=== PATIENT | female | born 1950 | race Caucasian/White ===

== ENCOUNTER 2020-09-15 18:57 | Observation (INO) | payer MEDICARE ==
[2020-09-15] MEDS ORDERED: Morphine 4 MG/ML VIAL ONE (20:21)
[2020-09-15] MEDS ORDERED: Dextrose 5% in Water 1,000 ML IV PRN (21:12)
[2020-09-15] MEDS ORDERED: Morphine 2 MG/ML VIAL SLOW IVP PRN (21:12)
[2020-09-15] MEDS ORDERED: Morphine 4 MG/ML VIAL SLOW IVP PRN (21:12)
[2020-09-15] MEDS ORDERED: Dextrose 50% Abboject 50 ML SYRINGE SLOW IVP PRN (21:12)
[2020-09-15] MEDS ORDERED: hydrALAZINE 20 MG/ML VIAL SLOW IVP PRN (21:12)
[2020-09-15] MEDS ORDERED: Promethazine HCl 25 MG/ML VIAL IM PRN (21:12)
[2020-09-15] MEDS: Famotidine/PF 20 mg/2ml Vial SLOW IVP SCH (21:24)
[2020-09-15] MEDS: D5 1/2 NS w/20 mEq KCL 1,000 ML IV SCH (21:24)
[2020-09-15] MEDS: Ondansetron PF 4 MG/2 ML Vial IVP PRN (21:24)
[2020-09-15] MEDS: Famotidine 20 MG TAB PO SCH (21:26)
[2020-09-15 22:11] VITALS: BMI 22.4
[2020-09-15] MEDS: Ketorolac Tromethamine 30 MG/ML VIAL IVP SCH (23:43)
[2020-09-15] MEDS: Piperacillin/Tazobactam 3.375 GM in Sodium Chloride 0.9% 100 ML IVPB SCH (23:44)
[2020-09-16] MEDS: Piperacillin/Tazobactam 3.375 GM in Sodium Chloride 0.9% 100 ML IVPB SCH ×4 (05:06→23:55)
[2020-09-16] MEDS: Ketorolac Tromethamine 30 MG/ML VIAL IVP SCH ×4 (05:06→23:56)
[2020-09-16] MEDS: D5 1/2 NS w/20 mEq KCL 1,000 ML IV SCH ×2 (05:10→17:57)
[2020-09-16] MEDS: Ondansetron PF 4 MG/2 ML Vial IVP PRN (06:29)
[2020-09-16] MEDS ORDERED: Fentanyl 100 MCG/2 ML VIAL ONE (07:17)
[2020-09-16] MEDS ORDERED: Lidocaine 1% w/Epinephrine 1:100K 20 ML VIAL ONE (07:25)
[2020-09-16] MEDS ORDERED: Bupivacaine 0.25% HCL 30 ML VIAL ONE (07:25)
[2020-09-16] MEDS ORDERED: Ondansetron HCl/PF 4 MG/2 ML Vial IVP PRN (07:31)
[2020-09-16] MEDS ORDERED: HYDROmorphone 2 MG/ML VIAL SLOW IVP PRN (07:31)
[2020-09-16] MEDS ORDERED: Promethazine HCl 25 MG/ML VIAL SLOW IVP PRN (07:31)
[2020-09-16] MEDS ORDERED: Morphine Sulfate 2 MG/ML SYRINGE SLOW IVP PRN (07:31)
[2020-09-16] MEDS ORDERED: Promethazine HCl 25 MG/ML VIAL IM PRN (07:31)
[2020-09-16] MEDS: Famotidine 20 MG TAB PO SCH ×2 (09:00→20:23)
[2020-09-16] MEDS: Famotidine/PF 20 mg/2ml Vial SLOW IVP SCH ×2 (09:00→20:24)
[2020-09-16] MEDS ORDERED: Lidocaine 1% PF 5 ML VIAL ONE (10:02)
[2020-09-16] MEDS ORDERED: Glycopyrrolate 0.2 MG/ML 5 ML SYRINGE ONE (10:02)
[2020-09-16] MEDS ORDERED: PROPOFOL 200 MG/20 ML VIAL ONE (10:02)
[2020-09-16] MEDS ORDERED: Succinylcholine 200 MG/10 ml SYRINGE FS ONE (10:02)
[2020-09-16] MEDS ORDERED: Ondansetron PF 4 MG/2 ML Vial ONE (10:02)
[2020-09-16] MEDS ORDERED: Rocuronium Bromide 10 MG/ML (10ML VIAL) ONE (10:02)
[2020-09-16] MEDS ORDERED: Dexamethasone 20 MG/5 ML VIAL ONE (10:02)
[2020-09-16] MEDS ORDERED: PHENYLEPHRINE-NS 100 MCG/ML 10 ML SYRINGE ONE (10:02)
[2020-09-16] MEDS ORDERED: HYDROcodone/Acetaminophen 7.5/325 mg Tablet PO PRN (20:29)
[2020-09-17] MEDS: Piperacillin/Tazobactam 3.375 GM in Sodium Chloride 0.9% 100 ML IVPB SCH ×2 (05:39→11:55)
[2020-09-17] MEDS: Ketorolac Tromethamine 30 MG/ML VIAL IVP SCH ×2 (05:40→11:55)
[2020-09-17] MEDS: D5 1/2 NS w/20 mEq KCL 1,000 ML IV SCH ×2 (05:41→11:55)
[2020-09-17 06:11] VITALS: TEMP 97.7
[2020-09-17 06:16] LABS: #Lymphocytes 0.6 thou/uL (1.20-3.40); #Monocytes 0.8 thou/uL (0.11-0.59); #Neutrophils 7.3 thou/uL (1.40-6.50); %Basophils 0.1 % (0.0-1.0); %Eosinophils 0.1 % (0.0-10.0); %Lymphocytes 6.9 % (21.0-51.0); %Monocytes 9.2 % (0.0-10.0); %Neutrophils 83.6 % (42.0-75.0); Mean Corpuscular HGB CONC 32.8 g/dL (32.0-36.0); Mean Corpuscular Hemoglobin 33.8 pg (27.0-31.0); Mean Platelet Volume 8.6 fL (7.4-10.4); Platelet Count 163 thou/uL (130-400); Red Blood Cell (RBC) Count 2.96 mill/uL (4.20-5.40); White Blood Cell (WBC) Count 8.8 thou/uL (4.8-10.8)
[2020-09-17 08:22] VITALS: BP 90/55
[2020-09-17] MEDS: Famotidine 20 MG TAB PO SCH (09:29)
[2020-09-17] MEDS: Famotidine/PF 20 mg/2ml Vial SLOW IVP SCH (09:30)
== END 2020-09-17 14:30 | disposition home or self-care (01) ==
LOC: SDC/OP 18:57 → SJJU 20:32 → UNDOADMOB 21:12
PROVIDERS: ADMIT Specialist; ATTEND Specialist
PROC: 0DTJ4ZZ Resection of Appendix, Percutaneous Endoscopic Approach (ICD-10-PCS; principal; 2020-09-15)
DX: K35.891 Other acute appendicitis without perforation, with gangrene (principal); E78.00 Pure hypercholesterolemia, unspecified; Z79.899 Other long term (current) drug therapy; Z20.822 Contact with and (suspected) exposure to COVID-19
CPT/HCPCS: 44970; 85025; 87070; 87075; 87077; 87186; 87205; 88304; 96365; 96366 ×2; 96375; 96376 ×2; G0378 ×3; 36415; J1100; J1885; J2270; J2405; J2543; J2704; J3010; J3480; J3490; S0020; S0028